=== PATIENT | female | born 1985 | race Caucasian/White ===

== ENCOUNTER 2023-05-23 13:12 | Inpatient (IN) | payer BC, OTHER, SELFPAY ==
[2023-05-23] VITALS (35 sets, daily range): BP systolic 91–117; BP diastolic 40–78; PULSE 67–147; RESP 16; TEMP 36.1–36.6; O2SAT 89–100; BMI 40.3
[2023-05-23] MEDS: LACTATED RINGERS 1,000 ML 125 ML IV CONT (13:48)
[2023-05-23 13:53] LABS: Glucose Point of Care 95 mg/dl (65-105)
[2023-05-23 13:56] LABS: Basophils Percent Auto 0.4 % (0.2-1.2); Eosinophils Absolute Auto 0.2 K/mm3 (0-0.3); Eosinophils Percent Auto 1.6 % (0-4.4); Hematocrit 33.2 % (37.0-47.0); Hemoglobin 10.5 g/dL (12.0-15.0); Immature Granulocyte Absolute 0.03 K/mm3 (0.00-0.031); Immature Granulocyte Percent A 0.3 % (0-0.5); Lymphocytes Absolute Auto 2.37 K/mm3 (0.9-3.2); Lymphocytes Percent Auto 23.4 % (18.3-44.2); Mean Corpuscular HGB Conc 31.6 g/dl (32-36); Mean Corpuscular Hemoglobin 28.2 pg (26-34); Mean Platelet Volume 12.1 fl (7.4-10.4); Monocytes Absolute Auto 0.7 K/mm3 (0.1-0.6); Monocytes Percent Auto 7.1 % (2.6-8.5); Neutrophils Absolute Auto 6.8 K/mm3 (1.3-6.7); Neutrophils Percent Auto 67.2 % (45.5-73.1); Platelet Count Result 192 k/mm3 (150-375); Red Blood Count 3.73 M/mm3 (4.2-5.4); Red Cell Distribution Width 14.3 % (11.5-14.5); White Blood Count 10.1 K/mm3 (4.5-10.0)
--- NOTE | 2023-05-23 13:56 | LDADM ---
This patient, Landy Alegria, was admitted to Labor/Delivery/Recovery 120 on 05/23/23 at 13:12. Plans for labor, pain management and were discussed with patient. Patient/family oriented to hospital policies and general routines including ID bracelet, bed and alarms, visiting hours, pain management, procedures, bathroom and other care routines, personal items, smoking policy, room service/diet and guest tray routines, infant security routines, and visiting hours. Patient/Family are encouraged to report perceived risks to care and to ask questions if they do not understand what they are told or what they should do. See OBIX for further documentation.
--- NOTE | 2023-05-23 13:58 | WPDANESEPPF ---
Anes - Initial Pre Proc Eval Procedure: Operation Date: 05/23/23 14:15 Proposed Procedures p Section - Charlee Bautista MD Date/Time: 05/23/23 13:58 Surgeon: Charlee Bautista MD Pre Op Diagnosis: SROM Patient Data Age: 37 Gender: F Height: 1.65 m Weight: 110 kg Allergies Allergy/AdvReac Type Severity Reaction Status Date / Time shellfish derived Allergy Severe Swelling Verified 02/02/18 13:30 Penicillins Allergy Mild RASH AND Verified 02/02/18 13:30 SOB Shrimp Allergy Mild Uncoded 02/02/18 13:30 Laboratory Tests 05/23/23 13:46 WBC Pending RBC Pending Hgb Pending Hct Pending MCV Pending MCH Pending MCHC Pending RDW Pending Plt Count Pending MPV Pending Immature Gran % (Auto) Pending Neut % (Auto) Pending Lymph % (Auto) Pending [place] % (Auto) Pending Eos % (Auto) Pending Baso % (Auto) Pending Lymph # (Auto) Pending [place] # (Auto) Pending Eos # (Auto) Pending Baso # (Auto) Pending Abs Immat Gran (auto) Pending Absolute Neuts (auto) Pending Absolute Nucleated RBC Pending Nucleated RBC % Pending POC Capillary Glucose 95 mg/dl (65-105) RPR Pending Patient hx anesthesia problems: none Family hx anesthesia problems: none Results Review: All pre-operative results and documents have been reviewed as part of the pre-operative evaluation. FOR[facility]LY [facility] Past Medical History Medical History (Updated 05/23/23 @ 13:58 by Jourdan Rubin DO) GDM (gestational diabetes mellitus) Anes - Eval Final PreProcedure Day of Procedure 05/23/23 13:58 Patient weight: morbidly obese Heart: regular rate and rhythm Lungs: clear to auscultation and normal air movement Airway: Mallampati scale class II Neurological: alert and oriented Last oral intake: >/= 8 hours ASA classification: III Emergent: no Anesthetic plan: proceed Anesthesia type and monitoring: regional spinal and standard monitoring Results Review: All pre-operative results and documents have been reviewed as part of the pre-operative evaluation. Informed Consent: The patient's anesthetic plan and its attendant risks and benefits were discussed with the patient/family/POA. Questions were solicited and answers provided to the satisfaction of the patient/family/POA.
[2023-05-23] MEDS: CLINDAMYCIN 900 MG/D5W 50 ML 900 MG/50 ML PIGGYBACK 50 MG IVPB (14:19)
--- NOTE | 2023-05-23 14:19 | WPDHPUPDATE1 ---
History and Physical Update Update Date/Time: 05/23/23 14:19 History and Physical has been reviewed, including an updated exam of the patient. There are NO changes in the patient's condition. Risks, benefits, and alternatives have been discussed and questions answered. Patient agrees to proceed with procedure.
--- NOTE | 2023-05-23 14:20 | PM.IMHP ---
H&P: HPI History of Present Illness Date/Time: 05/23/23 14:20 Chief Complaint: Term Narrative: this patient is a 37-year-old multiparous female with previous delivery. We have agreed to perform repeat delivery. She has ruptured membranes today at 35 weeks. We will proceed directly with repeat delivery. The patient understands there is risk associated with the delivery. She understands the procedure very well. She understands that injuries may occur that result in hospitalization, more surgery, and severe illness. She understands that there is risk of hemorrhage and infection. She denies any chest pain shortness of breath. She denies any nausea, vomiting, fever, chills. Review of Systems Review of Systems: All systems reviewed & are unremarkable except as noted in HPI and below Constitutional: Constitutional: Denies chills, Denies fatigue, Denies fever(s) and Denies weakness Eyes: Eyes: Denies blurry vision, Denies change in vision, Denies loss of peripheral vision, Denies loss of vision, Denies other visual disturbances and Denies eye pain ENT: Denies vertigo, Denies dizziness, Denies hearing loss, Denies mouth pain, Denies nasal obstruction, Denies neck mass and Denies neck pain Cardiovascular: Cardiovascular: Denies chest pain, Denies diaphoresis, Denies syncope, Denies leg edema and Denies dyspnea Respiratory: Respiratory: Denies chest congestion, Denies cough, Denies hemoptysis, Denies dyspnea and Denies wheezing Gastrointestinal: Gastrointestinal: Denies abdominal pain, Denies constipation, Denies diarrhea, Denies nausea and Denies vomiting Genitourinary: Genitourinary: Denies hematuria, Denies change in libido, Denies nocturia, Denies genital lesions, Denies flank pain and Denies urinary urgency Musculoskeletal: Musculoskeletal: Denies abnormal gait, Denies back pain, Denies myalgias, Denies arthralgias, Denies joint swelling, Denies muscle weakness and Denies neck pain Integumentary/Breasts: Skin/Breast: Denies swelling, Denies breast pain, Denies breast mass, Denies dry skin, Denies nipple discharge, Denies unusual bruising and Denies jaundice Neurologic: Denies Neuro-related abnormal movements, Denies Abnormal speech present, Denies abnormal gait, Denies behavioral changes, Denies confusion, Denies vertigo, Denies dizziness, Denies syncope, Denies loss of vision, Denies memory loss, Denies convulsions and Denies weakness Psychiatric: Psychiatric: Denies abnormal sleep pattern, Denies behavioral changes, Denies change in libido, Denies confusion, Denies depression, Denies anhedonia and Denies memory loss Endocrine: Endocrine: Reports no additional endocrine complaints, Denies change in libido and Denies fatigue Hematologic/Lymphatic: Hematologic/Lymphatic: Reports no additional hematologic/lymphatic complaints Allergic/Immunologic: Allergic/Immunologic: Reports no additional allergic/immunologic complaints and Denies wheezing PMFSH Past Medical History Medical History (Updated 05/23/23 @ 14:22 by Charlee Bautista MD) GDM (gestational diabetes mellitus) Social History Social History Smoking status: Never smoker Substance use: never Lack of Transportation: No Lack of Food: Never True Current Housing: I Have Housing Concerned About Future Housing: No Difficulty Paying Gas/Electric Bills: No Difficulty Paying for Meds: No Currently Unemployed: No Education: Don't Know Difficulty w/ Childcare or Family Care: No Spiritual care concerns: No Meds Home Medications and Allergies Allergies Allergy/AdvReac Type Severity Reaction Status Date / Time shellfish derived Allergy Severe Swelling Verified 02/02/18 13:30 Penicillins Allergy Mild RASH AND Verified 02/02/18 13:30 SOB Shrimp Allergy Mild Uncoded 02/02/18 13:30 Vital Signs Vital Signs - 24 hr 05/23/23 13:52 Oxygen Delivery Room Air Exam Const: General: cooperative,
[2023-05-23] MEDS: ONDANSETRON INJ 4 MG/2 ML VIAL IV PUSH (14:59)
[2023-05-23] MEDS: FAMOTIDINE 20 MG/2 ML VIAL IV PUSH (14:59)
[2023-05-23 15:01] LABS: HIV 1/2 Ab P24 Ag Result Negative (Negative)
--- NOTE | 2023-05-23 15:36 | W.PM.PROC2 ---
Procedure Note - Detailed Date of Procedure 05/23/23 Pre-op Diagnosis SROM Post-op Diagnosis Same Procedure Performed Total laparoscopic hysterectomy. Surgeon Charlee Bautista MD Anesthesia General Findings subcutaneous scar tissue, abdominal wall scarring at the midline of the anterior abdominal wall. Normal-appearing infant at 35 weeks gestation with normal Apgars Description of Procedure This patient was taken to the operating room. She was prepped and draped in the dorsal lithotomy position after induction of general anesthesia. The uterine manipulator and Ubaldo cup were placed. This was done with a speculum and tenaculum. The speculum was placed. The cervix was grasped with a tenaculum. The stay sutures were placed at 3 and 9:00 a.m.. The stay sutures of 0 Vicryl were brought through the appropriately sized Ubaldo cup. The tip of the ZULEIKA manipulator was placed in the intrauterine cavity. The cup was slid into place around the cervix and into the fornices. It was locked into place. The sutures were then wrapped around the handle and tied under tension. A 5 mm skin incision was made in the left upper quadrant the abdomen. A 5 mm trocar was inserted into the intrauterine cavity under direct visualization of the scope. Pneumoperitoneum was achieved. A left lower quadrant 11 mm incision was made with scalpel. An 11 mm trocar was inserted into the anterior abdominal cavity under direct visualization the scope. A 5 mm infraumbilical incision was made with a scalpel and a 5 mm trocar was inserted the intra-abdominal cavity under direct visualization of the scope. Bilateral ureteral lysis was performed. This was done from the pelvic brim down to the uterine artery. This was done with careful dissection using sharp and blunt dissection. The fallopian tubes were removed bilaterally. The mesosalpinx around the fallopian tubes were cauterized transected with LigaSure cautery. This was done in a bilateral fashion from the ovary to the uterine cornua. The fallopian tube was transected at the uterine cornu and amputated. The tube was taken out the left lower quadrant trocar site. In a stepwise fashion along the lateral aspects of the uterus the round ligament and broad ligaments were cauterized transected down to the level of the uterine arteries. A bladder flap was created in the bladder was moved distally to the end of the cervix and over the Ubaldo cup. The bilateral uterine arteries were cauterized and transected. Colpotomy was then performed. In a circumferential fashion the vagina was transected using unipolar cautery. The incision was made down on the Ubaldo cup. The uterus and cervix were taken out through the vagina. A pneumo occluder was placed in the vagina. The vaginal cuff was closed with a 0 V lock suture in a running fashion. The pelvis was irrigated with copious amounts antibiotic irrigation. The ureters were again examined and found to be intact and flowing freely under the uterine arteries into the bladder. The bladder was intact. It was examined directly. The vagina was irrigated with Betadine solution after removal of the Pneumo occluder. The patient was taken to recovery room. She was stable condition. Sponge lap and needle counts were correct x2. Drains Yes Packing No Pathology Yes Complications No immediate complications Condition Stable Disposition Floor
--- NOTE | 2023-05-23 15:37 | P.PCNOB_ITS ---
OB - Delivery Note Procedure Delivery date: 05/23/23 Pre-op diagnosis: Premature Rupture of Membranes Post-op Diagnosis: Same Procedure Performed: Repeat Surgeon: Charlee Bautista MD Anesthesia type: Spinal Description of Procedure/Findings: This patient was taken to the operating room.? She was prepped and draped in the dorsal lithotomy position after induction of general anesthesia.? The uterine manipulator and Ubaldo cup were placed.? This was done with a speculum and tenaculum.? The speculum was placed.? The cervix was grasped with a tenaculum.? The stay sutures were placed at 3 and 9:00 a.m..? The stay sutures of 0 Vicryl were brought through the appropriately sized Ubaldo cup.? The tip of the ZULEIKA manipulator was placed in the intrauterine cavity.? The cup was slid into place around the cervix and into the fornices.? It was locked into place.? The sutures were then wrapped around the handle and tied under tension. A 5 mm skin incision was made in the left upper quadrant the abdomen.? A 5 mm trocar was inserted into the intrauterine cavity under direct visualization of the scope.? Pneumoperitoneum was achieved.? A left lower quadrant 11 mm incision was made with scalpel.? An 11 mm trocar was inserted into the anterior abdominal cavity under direct visualization the scope.? A 5 mm infraumbilical incision was made with a scalpel and a 5 mm trocar was inserted the intra-abdominal cavity under direct visualization of the scope. Bilateral ureteral lysis was performed.? This was done from the pelvic brim down to the uterine artery.? This was done with careful dissection using sharp and blunt dissection.? The fallopian tubes were removed bilaterally.? The mesosalpinx around the fallopian tubes were cauterized transected with LigaSure cautery.? This was done in a bilateral fashion from the ovary to the uterine cornua.? The fallopian tube was transected at the uterine cornu and amputated.? The tube was taken out the left lower quadrant trocar site.? In a stepwise fashion along the lateral aspects of the uterus the round ligament and broad ligaments were cauterized transected down to the level of the uterine arteries.? A bladder flap was created in the bladder was moved distally to the end of the cervix and over the Ubaldo cup.? The bilateral uterine arteries were cauterized and transected.? Colpotomy was then performed.? In a circumferential fashion the vagina was transected using unipolar cautery.? The incision was made down on the Ubaldo cup.? The uterus and cervix were taken out through the vagina.? A pneumo occluder was placed in the vagina. The vaginal cuff was closed with a 0 V lock suture in a running fashion.? The pelvis was irrigated with copious amounts antibiotic irrigation.? The ureters were again examined and found to be intact and flowing freely under the uterine arteries into the bladder.? The bladder was intact.? It was examined directly.? The vagina was irrigated with Betadine solution after removal of the Pneumo occluder.? The patient was taken to recovery room.? She was stable condition.? Sponge lap and needle counts were correct x2. Specimen: Yes Urine Output: -500.0 [place] Baby Weeks of gestation at delivery: 35
[2023-05-23] MEDS: KETOROLAC 30 MG/ML VIAL (*BKC) 15 MG IV PUSH (15:55)
[2023-05-23] MEDS: OXYTOCIN 30 UNITS/NS 500 ML 30 UNITS/500 ML BAG 125 UNITS IV CONT (16:26)
[2023-05-23] MEDS: MORPHINE SULFATE INJ (*CRX) 10 MG/ML AMP 2 MG IV PUSH ×2 (16:26→17:36)
--- NOTE | 2023-05-23 17:27 | P.PCNOB_ITS ---
OB - Delivery Note Procedure Delivery date: 05/23/23 Pre-op diagnosis: Premature Rupture of Membranes Post-op Diagnosis: Same Procedure Performed: Repeat Surgeon: Charlee Bautista MD Anesthesia type: Spinal Description of Procedure/Findings: The patient was taken the operating room.? She was prepped and draped in dorsal supine position with a leftward tilt.? This was done after spinal anesthetic was applied.? A low-transverse skin incision was made and carried down till of the fascia with the knife.? The fascial incision was made with the knife.? The fascial incision was extended laterally with Toro scissors.? The fascia was tented upward superiorly and inferiorly the rectus muscles were dissected off bluntly.? The rectus muscles were the midline.? The preperitoneal fat and peritoneum were dissected open bluntly at the superior aspect of the rectus muscles.? The peritoneal incision was extended superior and inferior with good position of bladder.? The uterine incision was made with a scalpel down to the level of the amniotic cavity.? The amniotic cavity was entered bluntly.? The was delivered.? The cord was clamped and cut and the was handed off to waiting pediatric staff.? Cord bloods were obtained.? The placenta was removed manually.? The uterus was exteriorized.? The uterus was cleared of all clots, debris and membranes.? The uterus was closed in 0 Vicryl running lock fashion.? An imbricating over a was placed along the incision line as well.? The uterus was returned to the abdomen.? The gutters were cleared of all clots and debris.? The fascia was closed with 0 Vicryl running fashion.? The subcutaneous tissue was irrigated pinpoint bleeders were cauterized.? The skin was closed with subcuticular absorbable fozia.? The skin incision line was covered with glue.? The patient tolerated the procedure well.? She has taken recovery room in stable condition.? Sponge lap and needle counts were correct x2.? Complications Complications: None Urine Output: -500.0 [place] Baby Weeks of gestation at delivery: 35
--- NOTE | 2023-05-23 17:45 | PC.NURSE ---
Patient transferred to post room #286 via stretcher. Oriented to unit, room, information board, rooming in, admission packet and security measures. Patient verbalizes understanding.
[2023-05-23] MEDS: HYDROcodone/acetaminophen (*CRX) 10-325 MG TABLET 1 TAB PO ×2 (19:40→23:50)
--- NOTE | 2023-05-23 20:36 | PC.NURSE ---
FHT in the OR were 150.
[2023-05-23] MEDS: DEXTROSE 5%/0.45% SOD CHL 1,000 ML 125 ML IV CONT (21:15)
[2023-05-23] MEDS: IBUPROFEN 600 MG TABLET PO (23:50)
[2023-05-24 04:00] VITALS: BP 111/71; PULSE 65; RESP 16; TEMP 36.6; O2SAT 100
[2023-05-24] MEDS: HYDROcodone/acetaminophen (*CRX) 10-325 MG TABLET 1 TAB PO ×6 (04:25→20:55)
[2023-05-24 05:07] LABS: Basophils Percent Auto 0.2 % (0.2-1.2); Eosinophils Percent Auto 0.2 % (0-4.4); Hematocrit 26.4 % (37.0-47.0); Hemoglobin 8.3 g/dL (12.0-15.0); Immature Granulocyte Absolute 0.19 K/mm3 (0.00-0.031); Lymphocytes Absolute Auto 2.41 K/mm3 (0.9-3.2); Lymphocytes Percent Auto 12.5 % (18.3-44.2); Mean Corpuscular HGB Conc 31.4 g/dl (32-36); Mean Corpuscular Volume 89.2 fl (80-100); Mean Platelet Volume 12.4 fl (7.4-10.4); Monocytes Absolute Auto 1.9 K/mm3 (0.1-0.6); Monocytes Percent Auto 9.8 % (2.6-8.5); Neutrophils Absolute Auto 14.7 K/mm3 (1.3-6.7); Neutrophils Percent Auto 76.3 % (45.5-73.1); Platelet Count Result 191 k/mm3 (150-375); Red Blood Count 2.96 M/mm3 (4.2-5.4); Red Cell Distribution Width 14.2 % (11.5-14.5); White Blood Count 19.3 K/mm3 (4.5-10.0)
--- NOTE | 2023-05-24 06:43 | PM.OBPNVD ---
OB - PN: Subj Subjective Date/time seen: 05/24/23 06:43 Interval history: pp day 1 doing well flatus present pain controlled OB - PN: Obj Data Labs 05/24/23 04:23 Labs: Laboratory Results - last 24 hr 05/23/23 05/23/23 05/24/23 13:46 14:01 04:23 WBC 10.1 H 19.3 H RBC 3.73 L 2.96 L Hgb 10.5 L 8.3 L Hct 33.2 L 26.4 L MCV 89.0 89.2 MCH 28.2 28.0 MCHC 31.6 L 31.4 L RDW 14.3 14.2 Plt Count 192 191 MPV 12.1 H 12.4 H Immature Gran % (Auto) 0.3 1.0 H Neut % (Auto) 67.2 76.3 H Lymph % (Auto) 23.4 12.5 L [place] % (Auto) 7.1 9.8 H Eos % (Auto) 1.6 0.2 Baso % (Auto) 0.4 0.2 Lymph # (Auto) 2.37 2.41 [place] # (Auto) 0.7 H 1.9 H Eos # (Auto) 0.2 0.0 Baso # (Auto) 0.0 0.0 Abs Immat Gran (auto) 0.03 0.19 H Absolute Neuts (auto) 6.8 H 14.7 H Absolute Nucleated RBC 0.0 0.0 Nucleated RBC % 0.0 0.0 POC Capillary Glucose 95 HIV 1&2 Ab/P24 Ag 4thGn Negative Blood Type A Positive Antibody Screen Negative OB - PN A/P Time Spent With Patient Time: Total time spent is greater than 50% in coordination of care (as documented) at patient's floor/unit and/or counseling patient: Review of Systems Review of Systems: All systems reviewed & are unremarkable except as noted in HPI and below Exam Const: General: cooperative and healthy appearing Resp: Effort & Inspection: normal respiratory effort Cardio: Rate: regular rate Rhythm: regular rhythm GI: Inspection: normal to inspection Skin: General skin exam: normal color Neuro: General: oriented to person, oriented to place, oriented to time and patient oriented x3 Extrem: Right lower extremity: normal to inspection Left lower extremity: normal to inspection Psych: Appearance: grossly normal
[2023-05-24] MEDS: POLYSACCHARIDE IRON COMPLEX 150 MG CAPSULE PO ×2 (07:35→17:30)
[2023-05-24] MEDS: IBUPROFEN 600 MG TABLET PO ×3 (07:36→20:55)
[2023-05-24] MEDS: MULTIVIT/MIN/PREN/FOL AC/IRON TABLET 1 TAB PO (07:36)
[2023-05-24] MEDS: DOCUSATE SODIUM 100 MG CAPSULE PO ×2 (07:36→17:30)
[2023-05-24] MEDS: IRON SUCROSE COMPLEX 400 MG in SODIUM CHLORIDE 0.9% IV 250 ML 108 MG IVPB (08:36)
--- NOTE | 2023-05-24 08:48 | WPDANLDPN2 ---
Anes-Prog Note L&D Date/Time: 05/24/23 08:48 Comfortable throughout: section Neuraxial method: epidural Epidural/Spinal procedure site: clean & non-tender Neuro status: Neuro function grossly intact. Cardiovascular status: normal Respiratory status: normal Airway patency: baseline Mental status: baseline Post-Op hydration status: normal Vital Signs: Last Vital Signs Temp 36.6 C 05/24/23 04:00 Pulse 65 05/24/23 04:00 Resp 16 05/24/23 04:00 BP 111/71 05/24/23 04:00 Pulse Ox 100 05/24/23 04:00 O2 Del Method Room Air 05/24/23 04:00 Pain score (VAS): 2 I/O: Intake & Output 05/23/23 05/24/23 05/24/23 23:59 07:59 15:59 Intake Total 850 Output Total 600 300 Balance -600 550 Patient feedback: Patient satisfied with anesthetic care.
[2023-05-24 08:56] VITALS: BP 107/84; PULSE 76; RESP 18; TEMP 36.4; O2SAT 100
[2023-05-24 10:49] LABS: Rapid Plasma Reagin Non-Reactive (NonReactive)
--- NOTE | 2023-05-24 11:51 | PC.NURSE ---
[id number] Introductions were made, then consulted with patient to assess needs related to . Discussed with mother her?plans to feed?her infant, the?experience so far, changed wet/stool diaper to encourage infant to wake and feed. Reviewed [id number] with mother and placed upright on her breast. mother is confident, however, we reviewed behaviors. Mother has 5mls of EBM in a bottle to feed her since is not demonstrating feeding cues after 15 minutes of [id number]. Mother chooses to top off with formula as well. We discussed the expectation of the transition of the milk to come to full volume day 3-5 and prepared mother with the full volume milk might be delayed. Resources provided for inpatient and outpatient services with the feeding sheet, mom/baby guide and name written on the communication board. Mother voiced understanding of information and will call if there is a request for assistance. Reported to the Primary RN.
[2023-05-24 12:20] VITALS: BP 109/69; PULSE 72; RESP 16; TEMP 36.4; O2SAT 98
[2023-05-24 19:45] VITALS: BP 105/50; PULSE 75; RESP 18; TEMP 36.7; O2SAT 99
[2023-05-25] MEDS: HYDROcodone/acetaminophen (*CRX) 10-325 MG TABLET 1 TAB PO ×7 (00:22→22:24)
[2023-05-25] MEDS: IBUPROFEN 600 MG TABLET PO ×4 (04:46→22:24)
[2023-05-25 05:57] LABS: Basophils Percent Auto 0.4 % (0.2-1.2); Eosinophils Absolute Auto 0.3 K/mm3 (0-0.3); Eosinophils Percent Auto 3.1 % (0-4.4); Hemoglobin 8.4 g/dL (12.0-15.0); Immature Granulocyte Absolute 0.07 K/mm3 (0.00-0.031); Immature Granulocyte Percent A 0.6 % (0-0.5); Lymphocytes Absolute Auto 2.62 K/mm3 (0.9-3.2); Lymphocytes Percent Auto 24.3 % (18.3-44.2); Mean Corpuscular HGB Conc 31.1 g/dl (32-36); Mean Corpuscular Hemoglobin 28.2 pg (26-34); Mean Corpuscular Volume 90.6 fl (80-100); Mean Platelet Volume 12.3 fl (7.4-10.4); Monocytes Absolute Auto 1.1 K/mm3 (0.1-0.6); Monocytes Percent Auto 9.8 % (2.6-8.5); Neutrophils Absolute Auto 6.7 K/mm3 (1.3-6.7); Neutrophils Percent Auto 61.8 % (45.5-73.1); Platelet Count Result 166 k/mm3 (150-375); Red Blood Count 2.98 M/mm3 (4.2-5.4); Red Cell Distribution Width 14.3 % (11.5-14.5); White Blood Count 10.8 K/mm3 (4.5-10.0)
--- NOTE | 2023-05-25 07:45 | PC.NURSE ---
PT introductions made and plan of care discussed per post , post op c section, pain management, breast feeding, daily care activities. PT sole recipient of such instructions and no barriers to learning identified at this time. PT received such instructions per one to one discussion, mom baby care guide and demonstrations this shift. PT verbalized understanding of such care.
[2023-05-25 08:00] VITALS: PULSE 74; RESP 16; O2SAT 100
[2023-05-25 08:10] VITALS: BP 118/71; PULSE 74; RESP 16; TEMP 36.1; O2SAT 100
--- NOTE | 2023-05-25 08:22 | PM.OBPNVD ---
OB - PN: Subj Subjective Date/time seen: 05/25/23 08:22 Interval history: pp day 1 doing well flatus present pain controlled Patient comments: no complaints, pain well controlled, incisional pain, tolerating diet and flatus present OB - PN: Obj Data Labs 05/25/23 04:31 Labs: Laboratory Results - last 24 hr 05/23/23 05/25/23 13:46 04:31 WBC 10.8 H RBC 2.98 L Hgb 8.4 L Hct 27.0 L MCV 90.6 MCH 28.2 MCHC 31.1 L RDW 14.3 Plt Count 166 MPV 12.3 H Immature Gran % (Auto) 0.6 H Neut % (Auto) 61.8 Lymph % (Auto) 24.3 [place] % (Auto) 9.8 H Eos % (Auto) 3.1 Baso % (Auto) 0.4 Lymph # (Auto) 2.62 [place] # (Auto) 1.1 H Eos # (Auto) 0.3 Baso # (Auto) 0.0 Abs Immat Gran (auto) 0.07 H Absolute Neuts (auto) 6.7 Absolute Nucleated RBC 0.0 Nucleated RBC % 0.0 RPR Non-reactive OB - PN A/P Plan day: 2 Plan: routine care Comments: POD#2 LTCS - no problems, Time Spent With Patient Time: Total time spent is greater than 50% in coordination of care (as documented) at patient's floor/unit and/or counseling patient: Exam Const: General: comfortable, no acute distress and alert Resp: Effort & Inspection: normal respiratory effort Auscultation: no crackles, no rales and no rhonchi Cardio: Rate: regular rate Heart sounds: no click, no murmurs and no rubs GI: Inspection: non-distended Auscultation: normal bowel sounds Other: Incision - CDI Extrem: General: normal to inspection, no pedal edema and no calf tenderness
[2023-05-25] MEDS: DOCUSATE SODIUM 100 MG CAPSULE PO ×2 (11:23→16:09)
[2023-05-25] MEDS: SIMETHICONE 80 MG TAB.CHEW PO ×4 (11:24→22:24)
[2023-05-25] MEDS: POLYSACCHARIDE IRON COMPLEX 150 MG CAPSULE PO ×2 (11:24→16:09)
[2023-05-25] MEDS: MULTIVIT/MIN/PREN/FOL AC/IRON TABLET 1 TAB PO (11:25)
[2023-05-25] MEDS: guaiFENesin/DEXTROMETHORPHAN 10 ML UDC PO ×2 (13:58→19:10)
[2023-05-25 19:04] VITALS: BP 132/72; PULSE 82; RESP 20; TEMP 36.3
[2023-05-26] MEDS: SIMETHICONE 80 MG TAB.CHEW PO ×2 (02:47→20:32)
[2023-05-26] MEDS: HYDROcodone/acetaminophen (*CRX) 10-325 MG TABLET 1 TAB PO ×5 (02:47→20:30)
--- NOTE | 2023-05-26 07:41 | PM.OBPNVD ---
OB - PN: Subj Subjective Date/time seen: 05/26/23 07:41 Interval history: pp day 3 cough, on robitussin c/o oozing from incision flatus present pain not well controlled OB - PN: Obj Data Labs 05/25/23 04:31 OB - PN A/P Plan day: 3 Plan: routine care Time Spent With Patient Time: Total time spent is greater than 50% in coordination of care (as documented) at patient's floor/unit and/or counseling patient: Review of Systems Review of Systems: All systems reviewed & are unremarkable except as noted in HPI and below Exam Const: General: cooperative Chest: Chest palpation & inspection: normal inspection of the chest Resp: Effort & Inspection: normal respiratory effort Cardio: Rate: regular rate Rhythm: regular rhythm GI: Other: right side of incision guaze intact, no visible drainage, rest of incision CDI Back/Spine/Pelvis: Back: no CVA tenderness Skin: General skin exam: normal color
[2023-05-26] MEDS: MULTIVIT/MIN/PREN/FOL AC/IRON TABLET 1 TAB PO (07:54)
[2023-05-26] MEDS: DOCUSATE SODIUM 100 MG CAPSULE PO ×2 (07:54→16:35)
[2023-05-26] MEDS: IBUPROFEN 600 MG TABLET PO ×3 (07:54→20:30)
[2023-05-26] MEDS: FERROUS SULFATE 325 MG TABLET DR PO ×2 (08:01→16:35)
[2023-05-26 08:35] VITALS: BP 102/53; PULSE 74; RESP 18; TEMP 36.9; O2SAT 99
[2023-05-26] MEDS: guaiFENesin/DEXTROMETHORPHAN 10 ML UDC PO ×2 (10:59→20:32)
--- NOTE | 2023-05-26 13:45 | PC.NURSE ---
Mother verbalizes she is able to independently latch with appropriate positioning and alignment. She denies any nipple discomfort and is responsively . She describes that she is pumping and offers the breast but is also giving a bottle if she desires. Infant is currently meeting outcomes for weight, output, jaundice, blood sugar and feeding frequencies of 8-12 times in 24 hours. Mother declines any additional assistance or education at this time. Mother is encouraged to call for assistance if her doesn?t latch, pain with latching, questions or concerns. Mother voiced understanding of information shared along with the mom/baby guide for an additional resource. Reported to the Primary RN.
[2023-05-26 20:00] VITALS: BP 132/60; PULSE 85; RESP 16; RESP 18; TEMP 37.1; O2SAT 99
[2023-05-27] MEDS: HYDROcodone/acetaminophen (*CRX) 10-325 MG TABLET 1 TAB PO ×5 (03:39→17:57)
[2023-05-27 04:51] LABS: Hematocrit 26.4 % (37.0-47.0); Hemoglobin 8.5 g/dL (12.0-15.0); Mean Corpuscular HGB Conc 32.2 g/dl (32-36); Mean Corpuscular Hemoglobin 28.8 pg (26-34); Mean Corpuscular Volume 89.5 fl (80-100); Mean Platelet Volume 11.9 fl (7.4-10.4); Platelet Count Result 191 k/mm3 (150-375); Red Blood Count 2.95 M/mm3 (4.2-5.4); Red Cell Distribution Width 14.3 % (11.5-14.5); White Blood Count 8.1 K/mm3 (4.5-10.0)
[2023-05-27] MEDS: IBUPROFEN 600 MG TABLET PO ×2 (08:18→14:55)
[2023-05-27] MEDS: FERROUS SULFATE 325 MG TABLET DR PO ×2 (08:18→16:43)
[2023-05-27] MEDS: DOCUSATE SODIUM 100 MG CAPSULE PO ×2 (08:18→16:43)
[2023-05-27] MEDS: MULTIVIT/MIN/PREN/FOL AC/IRON TABLET 1 TAB PO (08:18)
[2023-05-27 08:20] VITALS: BP 130/83; PULSE 75; RESP 16; TEMP 36.6; O2SAT 100
[2023-05-27] MEDS: guaiFENesin/DEXTROMETHORPHAN 10 ML UDC PO (08:36)
[2023-05-27] MEDS: SIMETHICONE 80 MG TAB.CHEW PO ×4 (08:37→17:57)
--- NOTE | 2023-05-27 09:37 | PM.OBPNVD ---
OB - PN: Subj Subjective Date/time seen: 05/27/23 09:37 Interval history: pp day 3 cough, on robitussin c/o oozing from incision flatus present pain not well controlled Patient comments: no complaints, pain well controlled, incisional pain, tolerating diet and flatus present OB - PN: Obj Data Labs 05/27/23 03:40 Labs: Laboratory Results - last 24 hr 05/27/23 03:40 WBC 8.1 RBC 2.95 L Hgb 8.5 L Hct 26.4 L MCV 89.5 MCH 28.8 MCHC 32.2 RDW 14.3 Plt Count 191 MPV 11.9 H OB - PN A/P Plan day: 4 Plan: routine care, discharge home and other Comments: Incision check in one week. Given precautions Time Spent With Patient Time: Total time spent is greater than 50% in coordination of care (as documented) at patient's floor/unit and/or counseling patient: Exam Const: General: comfortable, no acute distress and alert Resp: Effort & Inspection: normal respiratory effort Auscultation: no crackles, no rales and no rhonchi Cardio: Rate: regular rate Heart sounds: no click, no murmurs and no rubs GI: Inspection: non-distended GI Palp: No Tenderness to palpation present (GI) Auscultation: normal bowel sounds Other: Incision - CDI Extrem: General: normal to inspection, no pedal edema and no calf tenderness
--- NOTE | 2023-05-27 09:38 | P.DS_ITS ---
DS: Admitting Diagnosis Discharge Date June 06, 2020 Admitting Diagnosis term DS: Discharge Diagnosis Discharge Diagnosis (1) delivery delivered: Code(s): O82 - Encounter for delivery without indication Status: Acute OB - DS: Summary OB Procedures : None OB Procedures Intrapartum: OB Procedures: : None Peripartum Data Procedures: Procedures Operation Date: 05/23/23 14:15 Actual Procedure Side Surgeon p Section Not Applicable Charlee Bautista MD Time Spent with Patient Time attestation: Total time spent providing and/or coordinating discharge services: DS: Data Data Completed and Pending Completed studies during hospitalization: Pending at discharge 05/23/23 16:04 Surgical [PTH] Routine Labs on day of discharge: Labs from last 24 hours 05/27/23 03:40 WBC 8.1 RBC 2.95 L Hgb 8.5 L Hct 26.4 L MCV 89.5 MCH 28.8 MCHC 32.2 RDW 14.3 Plt Count 191 MPV 11.9 H Discharge Plan Discharge Discharging Clinician: Charlee Bautista Patient Disposition: Home, Self-Care Activity: pelvic rest Diet: regular Patient Instructions: Antibiotic Form Stand Alone Forms: General Discharge Information Follow-up/Referrals: Charlee Bautista MD [Physician] - Discharge Medications: New oxycodone-acetaminophen 5-325 mg tablet 1 tablet PO Q4H PRN (Reason: pain) Qty: 25 0RF Date of admission: 05/23/23 13:12 Primary Care Provider: PHYSICIAN,[employer] REPA[employer]ER Admitting Provider: Charlee Bautista Attending physician on admission: Charlee Bautista Condition: Stable
== END 2023-05-27 17:58 | disposition home or self-care (01) | DRG 788 ==
LOC: ANHLDR 13:39 → ANHOB2 17:50
PROVIDERS: Advanced Practice Midwife; Admitting Provider Obstetrics & Gynecology; Visit Provider Obstetrics & Gynecology
PROC: 10D00Z1 Extraction of Products of Conception, Low, Open Approach (ICD-10-PCS; CPT 59514; principal; 2023-05-23 14:15)
DX: O42.913 Preterm premature rupture of membranes, unspecified as to length of time between rupture and onset of labor, third trimester (principal); Z3A.35 35 weeks gestation of pregnancy; Z37.0 Single live birth; O24.429 Gestational diabetes mellitus in childbirth, unspecified control; O34.211 Maternal care for low transverse scar from previous cesarean delivery; O99.284 Endocrine, nutritional and metabolic diseases complicating childbirth; E03.9 Hypothyroidism, unspecified
CPT/HCPCS: 36415; 82948; 85025; 85027; 86592; 86703; 86850; 86900; 86901; 88307; A9270; G0432; J1100; J1756; J1885; J2270; J2274; J2371; J2405; J2590; J7050; J7120

== ENCOUNTER 2024-03-17 12:40 | Emergency (ER) | payer BC, MEDICAID, SELFPAY ==
--- NOTE | ~2024-03-17 | XR_ITS ---
EXAMINATION: XR ankle LT 2V DATE: 03/17/2024 13:01 INDICATION: Left ankle injury and pain. TECHNIQUE: 2 views of left ankle were obtained. COMPARISON: None. FINDINGS: Alignment is normal. No fracture. 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 IMPRESSION: 1. Mild ankle joint osteoarthritis. Reviewed, dictated and finalized at location A.
--- NOTE | ~2024-03-17 | XR_ITS ---
EXAMINATION: XR foot LT 2V DATE: 03/17/2024 13:01 INDICATION: Left foot injury and pain. TECHNIQUE: 3 views of left foot were obtained. COMPARISON: None. FINDINGS: Alignment is normal. No fracture. Joint spaces are normal. IMPRESSION: 1. No fracture. Reviewed, dictated and finalized at location A. IMPRESSION: 1. No fracture.
[2024-03-17 12:45] VITALS: BP 139/100; PULSE 92; RESP 17; TEMP 36.6; O2SAT 100
--- NOTE | 2024-03-17 13:55 | ED.FALL ---
HPI - Fall General Chief Complaint: Fall Stated Complaint: fall Time Seen by Provider: 03/17/24 13:28 History of Present Illness HPI Narrative: Patient is a 38-year-old female who presents to the emergency department this afternoon complaining of left ankle pain. Patient states that she missed the last 2 steps and accidentally rolled her left ankle. Patient denies hitting her head and is currently denying any additional injuries. She states that she can not ambulate but it does hurt to walk on her left ankle. Denies any numbness and tingling. No additional symptoms or concerns at this time. Related Data Allergies Allergy/AdvReac Type Severity Reaction Status Date / Time shellfish derived Allergy Severe Swelling Verified 02/02/18 13:30 Penicillins Allergy Mild RASH AND Verified 02/02/18 13:30 SOB Shrimp Allergy Mild Uncoded 02/02/18 13:30 Review of Systems Review of Systems: All systems are reviewed and are negative unless stated otherwise in the HPI. [facility] Past Medical History Medical History GDM (gestational diabetes mellitus) Social History Social History Smoking status: Never smoker Substance use: never Lack of Transportation: No Lack of Food: Never True Current Housing: I Have Housing Concerned About Future Housing: No Difficulty Paying Gas/Electric Bills: No Difficulty Paying for Meds: No Currently Unemployed: No Education: Don't Know Difficulty w/ Childcare or Family Care: No Spiritual care concerns: No Exam Narrative: General: Alert, awake, afebrile, in no acute distress. HEENT: PERRL, no rhinorrhea, no post nasal drip, oropharynx clear. Cardiovascular: Regular rate and rhythm, no murmurs, rubs or gallops, no peripheral edema. Respiratory: Clear to auscultation bilaterally, no tachypnea, no wheezing, no rhonchi, no rubs, no respiratory distress. Abdomen: Soft, nontender, nondistended, no rebound, no guarding, no peritoneal signs. Musculoskeletal: Left ankle swelling mainly noted around the left lateral malleoli, no ecchymosis or blue the noted, no tenderness to palpation over the midfoot or the base of the 5th metatarsal, intact DP and PT pulses. Skin: No rashes or petechia, no signs of infection. Neurological: Alert and oriented to person, place, and time. Follows all commands. No focal deficits, speech is clear and fluent. Course Vital Signs Vital signs: Vital Signs Temperature 98 F 03/17/24 12:45 Pulse Rate 92 03/17/24 12:45 Respiratory Rate 17 03/17/24 12:45 Blood Pressure 139/100 H 03/17/24 12:45 Pulse Oximetry 100 03/17/24 12:45 Temperature 98 F 03/17/24 12:45 Pulse Rate 92 03/17/24 12:45 Respiratory Rate 17 03/17/24 12:45 Blood Pressure 139/100 H 03/17/24 12:45 Pulse Oximetry 100 03/17/24 12:45 MDM - Fall MDM Narrative Medical decision making narrative: The patient was evaluated by myself in the emergency department. History is obtained from patient who is an independent historian and physical exam was performed. External medical records were reviewed at this time. Patient was administered extend mg of oral ibuprofen for pain. Imaging studies obtained included x-rays of the left foot and ankle which was independently interpreted by me revealing no acute process, which is pending final radiology interpretation. At this time patient was placed in an Phuc wrap and instructed to rest, ice and elevate her left ankle And use ibuprofen and/or Tylenol as needed for pain. Differential diagnosis considerations include ankle sprain, fracture, dislocation. Comorbidities impacting this visit include none. I have evaluated and discussed social determinants of health with the patient that could potentially impact subsequent diagnosis and treatment plans. On repeat assessment of the patient, reevaluation reve
[2024-03-17] MEDS: IBUPROFEN 600 MG TABLET PO (14:09)
[2024-03-17 14:13] VITALS: BP 135/89; PULSE 90; RESP 18; TEMP 36.6; O2SAT 98
== END 2024-03-17 14:16 | disposition home or self-care (01) ==
PROVIDERS: Emergency Provider Emergency Medicine
DX: S93.402A Sprain of unspecified ligament of left ankle, initial encounter (principal); W10.9XXA Fall (on) (from) unspecified stairs and steps, initial encounter
CPT/HCPCS: 73600; 73620; 99283; A9270